=== PATIENT | female | born 1985 | race Caucasian/White ===

== ENCOUNTER 2022-08-01 11:24 | Emergency (ER) | payer BC, SELFPAY ==
[2022-08-01 11:44] VITALS: BP 126/82; PULSE 82; RESP 18; TEMP 36.7; O2SAT 98; BMI 36.5
--- NOTE | 2022-08-01 15:04 | ED_ITS ---
HPI - General Adult General Time Seen by Provider: 14:55 Date Seen: 08/01/22 Chief complaint: Extremity Pain/Injury, Upper Stated complaint: Left shoulder/arm pain Time Seen by Provider: 08/01/22 14:54 Source: patient and RN notes reviewed Mode of arrival: ambulatory Limitations: no limitations History of Present Illness HPI narrative: Patient is a very pleasant 37-year-old female coming in with complaint of left neck and shoulder pain. Pain is radiating into her left arm. She is not sure if it is her neck or her shoulder or maybe even perhaps both. Her grandfather is at home on hospice and she is helping to care for him. She sometimes has to do care alone. She has not slept in 2 days due to this pain. Started last week, she actually reached ended something awkward with her right arm and then the next morning her left neck hurt and then she started to have ensuing pain into the left shoulder and down into the arm. There is no numbness tingling. P ain limits her movement but there is no noted loss of strength to date. She has had no fevers, no trauma, is a nonsmoker. She has had a history of right shoulder problems before. She uses Valium for mental health stability and states she has some at home. She does have Flexeril as well as tizanidine at home and they are not helping. She states she does not want any narcotic medicines. I did go on [place] prescribing website and she has gotten minimal Valium, 3 prescriptions since September of 2021. Patient did wonder if we could do injections here and I reviewed with her that that is not standard, certainly cervical nerve root injections are definitely not done here in the ED. I would not recommend a rotator cuff/bursal injection at this point to either, again something in that is not standard of care in the ED either. Related Data Home Medications Medication Instructions Recorded Confirmed levothyroxine 112 mcg tablet mcg 08/01/22 Allergies Allergy/AdvReac Type Severity Reaction Status Date / Time amoxicillin Allergy Verified 08/01/22 11:48 Review of Systems Narrative: As per HPI Exam Const: Vital Signs, click to edit/add: Vital Signs - 24 hr 08/01/22 11:44 Temperature 98.1 F Pulse Rate [Right Pulse Oximeter] 82 Respiratory Rate 18 Blood Pressure [Ri ght Upper Arm] 126/82 Pulse Oximetry 98 Oxygen Delivery Me thod Room Air Documenting provider has reviewed patient's vital signs: yes Common normals: no apparent distress, oriented x3, no limitations, healthy appearing and alert General appearance: cooperative and comfortable Neck & C-Spine: Common normals: full ROM, no lymphadenopathy, supple, no meningeal signs, no JVD and thyroid normal Thyroid: thyroid normal Other: There is maybe some left upper paraspinal muscle tenderness. Left facet compression maybe increases her pain somewhat, nothing to the right. Cardio: Common normals: no JVD Extremity: Other: She has symmetric bilateral shoulder movement, question of a hint of supraspinatus impingement on examination but it is certainly mild on the left. Really does not have any limitation in her arc of abduction or range of motion of her left shoulder. Strength of her upper extremities is 5/5 and symmetric, normal light touch sensation. I cannot get DTRs in either extremity. No visible or palpable abnormalities on examination of her extremities. Neuro: Common normals: oriented x3 Sensorium/orientation: alert Meningeal signs: no meningeal signs Course Vital Signs Vital signs: Initial Vital Signs Temperature 98.1 F 08/01/22 11:44 Temperature Source Temporal Artery Scan 08/01/22 11:44 Pulse Rate 82 08/01/22 11:44 Respiratory Rate 18 08/01/22 11:44 Blood Pressure 126/82 08/01/22 11:44 Blood Pressure Mean 96 08/01/22 11:44 Blood Pressure Position Sitting 08/01/22 11:44 Pulse Oximetry 98 08/01/22 11:44 Oxygen Delivery Method 08/01/22 11:44 Vital Signs Temperature 98.1 F 08/01/22 11:44 Pulse Rate 82 08/01/22 11:44 Respiratory Rate 18 08/01/22 11:44 Blood Pressure 126/82 08/01/22 11:44 Pulse Oximetry 98 08/01/22 11:44 Oxygen Delivery Method 08/01/22 11:44 Temperature 98.1 F 08/01/22 11:44 Pulse Rate 82 08/01/22 11:44 Respiratory Rate 18 08/01/22 11:44 Blood Pressure 126/82 08/01/22 11:44 Pulse Oximetry 98 08/01/22 11:44 Oxygen Delivery Method 08/01/22 11:44 Critical Care Time Critical Care Time Critical Care Time: No Discharge Plan Discharge Clinical Impression: Arm pain, left Patient Disposition: Home, Self-Care Condition: Stable Instructions: Rotator Cuff Injury (ED), Cervical Radiculopathy (ED), Acute Neck Pain (ED) Additional Instructions: Start prednisone 20 mg twice daily for 5 days, take with food. Can continue to use Tylenol and ibuprofen per bottle directions as needed. Recommend using Tylenol baseline and then only using supplemental ibuprofen if needed while on the prednisone. Can continue with Flexeril or tizanidine at home per the prescription, use which works best for you. It is unclear whether this is possibly a a nerve issue coming from your neck or rotator cuff pathology/bursitis in the shoulder. It is possible that it could be a component of both. I recommend follow up in clinic with Dr. Ng for re-evaluation. Prescriptions: No Action levothyroxine 112 mcg tablet Label Comments: TAKE 1 TABLET BY MOUTH BEFORE BREAKFAST Stand Alone Forms: [employer] Info Instructions
== END 2022-08-01 15:31 | disposition home or self-care (01) ==
LOC: ED 15:17
PROVIDERS: Emergency Provider Family Medicine; PCP Family Medicine
DX: M54.2 Cervicalgia (principal); M25.512 Pain in left shoulder
CPT/HCPCS: 99282; 99283